=== PATIENT | female | born 1980 | race Caucasian/White ===

== ENCOUNTER 2023-08-13 23:39 | Emergency (ER) | payer BC ==
[2023-08-14] MEDS ORDERED: SODIUM CHLORIDE 0.9% 1,000 ML IV STA (00:01)
[2023-08-14] MEDS ORDERED: KETOROLAC 15 MG/ML 1 ML VIAL IVP STA (00:01)
[2023-08-14] MEDS ORDERED: ONDANSETRON 4 MG/2 ML VIAL IVP STA (00:01)
[2023-08-14 00:06] VITALS: TEMP 98.1
--- NOTE | 2023-08-14 00:12 | ED ---
Abdominal Pain HPI - General Chief Complaint: Abdominal Pain Stated Complaint: abd pain Time Seen by Provider: 08/13/23 23:51 Source: patient, RN notes reviewed Mode of arrival: wheelchair Limitations: no limitations - History of Present Illness Initial Comments: This is a 43-year-old female who presents to the emergency department for abdominal pain, nausea, vomiting, and headaches. Patient states that she's been dealing with severe exertional headaches over the last few weeks. She is working with her primary care provider to determine the cause of this. She's had an EKG and computed tomography scan of the brain revealing no acute findings. An echocardiogram was ordered, however this has not been done yet. States that today at work, she started to develop epigastric pain with nausea and vomiting. She also felt like she may have had some chest pain with this. She has had problems with similar epigastric pain before, but has never had this evaluated. The epigastric pain is still present, however it has started to improve. She does continue to have a headache as well. MD Complaint: abdominal pain - Related Data Allergies Allergy/AdvReac Type Severity Reaction Status Date / Time No Known Allergies Allergy Verified 08/13/23 23:48 Review of Systems ROS Statement: Those systems with pertinent positive or pertinent negative responses have been documented in the HPI. ROS Other: All systems not noted in ROS Statement are negative. Past Medical History Past Medical History: No Reported History History of Any Multi-Drug Resistant Organisms: None Reported Additional Past Surgical History / Comment(s): D&C Past Psychological History: No Psychological Hx Reported Smoking Status: Never smoker Past Alcohol Use History: Occasional Past Drug Use History: None Reported General Exam Limitations: no limitations General appearance: alert, in no apparent distress Head exam: Present: atraumatic, normocephalic, normal inspection Eye exam: Present: normal appearance, PERRL, EOMI. Absent: scleral icterus, conjunctival injection, periorbital swelling Respiratory exam: Present: normal lung sounds bilaterally. Absent: respiratory distress, wheezes, rales, rhonchi, stridor Cardiovascular Exam: Present: regular rate, normal rhythm, normal heart sounds. Absent: systolic murmur, diastolic murmur, rubs, gallop, clicks GI/Abdominal exam: Present: soft, tenderness (epigastric), normal bowel sounds. Absent: distended Neurological exam: Present: alert, oriented X3, CN II-XII intact Psychiatric exam: Present: normal affect, normal mood Skin exam: Present: warm, dry, intact, normal color. Absent: rash Course Vital Signs 08/13/23 08/14/23 08/14/23 23:45 01:11 02:11 Temperature 98.1 F Pulse Rate 96 80 79 Respiratory 18 16 16 Rate Blood Pressure 141/91 132/79 143/81 O2 Sat by Pulse 98 97 94 L Oximetry Medical Decision Making - Medical Decision Making This is a 43-year-old female who presents to the emergency department for abdominal pain and headaches. Was pt. sent in by a medical professional or institution? @ -No Did you speak to anyone other than the patient for history? @ -No Did you review nursing and triage notes? @ -Yes, and I agree, it is accurate with regards to the patient's symptoms. Were old charts reviewed? @ -No Differential Diagnosis? @ -Differential Abdominal Pain Women: Appendicitis, Cholecystitis, diverticulosis, ischemic bowel, pancreatitis, hepatitis, UTI, gastroenteritis, AAA, incarcerated hernia, bowel obstruction, constipation, inflammatory bowel, hepatitis, peptic ulcer disease, splenic infarction, perforated viscus, vulvitis, ovarian torsion, PID, kidney stone, placenta abruption, this is not meant to be an all-inclusive list EKG interpreted by me (3pts min.)? @ -EKG interpreted by me demonstrating the following: Sinus rhythm. Ventri cular rate 85 bpm, MO interval 161 ms, QRS duration 104 ms, QTC 412 ms. X-rays interpreted by me (1pt min.)? @ -Not obtained CT interpreted by me (1pt min.)? @ -Not obtained U/S interpreted by me (1pt. min.)? @ -Gallbladder US obtained. My interpretation identifies cholelithiasis. What testing was considered but not performed? (CT, X-rays, U/S, labs)? Why? @ -None What meds were considered but not given? Why? @ -None Did you discuss the management of the patient with other professionals? @ -No Did you reconcile home meds? @ -No Was smoking cessation discussed for >3mins.? @ -No Was critical care preformed (if so, how long)? @ -No Were there social determinants of health that impacted care today? How? (Homelessness, low income, unemployed, alcoholism, drug addiction, transportation, low edu. Level, literacy, decrease access to med. care, group home, rehab)? @ -No Was there de-escalation of care discussed even if they declined? (Discuss DNR or withdrawal of care, Hospice)? @ -No What co-morbidities impacted this encounter? (DM, HTN, Smoking, COPD, CAD, Can cer, CVA, Hep., AIDS, mental health diagnosis, sleep apnea, morbid obesity)? @ -None Was patient admitted / discharged? @ -Discharged. Lab work obtained and found to be unremarkable. Given the epigastric tenderness, a gallbladder ultrasound was obtained. Because she already had a computed tomography scan of the brain with regards to the ongoing headaches, no additional imaging in this regard was performed, as that is essentially the extent of what we would do in the emergency department. She was given IV fluids and Toradol for her symptoms. Gallbladder ultrasound reveals cholelithiasis. They did note a positive sonographic Louis sign, and advised that this is equivocal for acute cholecystitis. However patient does not have any lab work irregularities to suggest an acute cholecystitis. There is also no evidence of gallbladder wall thickening or CBD dilation. Her pain resolved with Toradol in the emergency department. Findings reviewed with the patient and she is comfortable with discharge home. She does also have follow-up appointment with her PCP on 08/16. Advised ibuprofen and Tylenol as needed for pain relief. She is also instructed to follow a low-fat bland diet for the meantime to reduce the risk of future flareups of epigastric pain. Information for general surgery follow-up provided. She is advised to contact them for a follow-up appointment. She was given strict return parameters. She will also continue to follow up with her primary care provider regarding the headaches. Undiagnosed new problem with uncertain prognosis? @ -None Drug Therapy requiring intensive monitoring for toxicity (Heparin, Nitro, Insulin, Cardizem)? @ -None Were any procedures done? @ -None Diagnosis/symptom? @ -Epigastric pain, cholelithiasis, biliary colic, headache Acute, or Chronic, or Acute on Chronic? @ -Acute Uncomplicated (without systemic symptoms) or Complicated (systemic symptoms)? @ -Uncomplicated Side effects of treatment? @ -None Exacerbation, Progression, or Severe Exacerbation] @ -Not applicable Poses a threat to life or bodily function? @ -The pain is impacting her ability to function. Return precautions reviewed in depth, the patient is instructed to return to the emergency department with any new, worsening, or concerning symptoms. Patient verbalized understanding. This case was discussed in detail with the attending ED physician, Dr. Zamorano. Presentation, findings, and treatment plan discussed in detail as well. - Lab Data Result diagrams: 08/14/23 00:56 08/14/23 00:56 Lab Results 08/14/23 08/14/23 08/14/23 Range/Units 00:56 00:56 00:56 WBC 10.5 (3.8-10.6) k/uL RBC 4.83 (3.80-5.40) m/uL Hgb 14.3 (11.4-16.0) gm/dL Hct 43.7 (34.0-46.0) % MCV 90.3 (80.0-100.0) fL MCH 29.5 (25.0-35.0) pg MCHC 32.7 (31.0-37.0) g/dL RDW 12.3 (11.5-15.5) % Plt Count 274 (150-450) k/uL MPV 8.4 Neutrophils % 70 % Lymphocytes % 23 % Monocytes % 4 % Eosinophils % 2 % Basophils % 0 % Neutrophils # 7.3 (1.3-7.7) k/uL Lymphocytes # 2.4 (1.0-4.8) k/uL Monocytes # 0.4 (0-1.0) k/uL Eosinophils # 0.2 (0-0.7) k/uL Basophils # 0.0 (0-0.2) k/uL Sodium 140 (137-145) mmol/L Potassium 3.8 (3.5-5.1) mmol/L Chloride 106 (98-107) mmol/L Carbon Dioxide 21 L (22-30) mmol/L Anion Gap 13 mmol/L BUN 23 H (7-17) mg/dL Creatinine 0.89 (0.52-1.04) mg/dL Est GFR (CKD-EPI)AfAm >90 (>60 ml/min/1.73 sqM) Est GFR (CKD-EPI)NonAf 79 (>60 ml/min/1.73 sqM) Glucose 95 (74-99) mg/dL Plasma Lactic Acid Neil 1.5 (0.7-2.0) mmol/L Calcium 9.3 (8.4-10.2) mg/dL Total Bilirubin 0.2 (0.2-1.3) mg/dL AST 34 (14-36) U/L ALT 22 (4-34) U/L Alkaline Phosphatase 76 (38-126) U/L Troponin I (0.000-0.034) ng/mL Total Protein 7.2 (6.3-8.2) g/dL Albumin 4.1 (3.5-5.0) g/dL Amylase 57 (30-110) U/L Lipase 113 (23-300) U/L Urine Color Urine Appearance (Clear) Urine pH (5.0-8.0) Ur Specific Bee (1.001-1.035) Urine Protein (Negative) Urine Glucose (UA) (Negative) Urine Ketones (Negative) Urine Blood (Negative) Urine Nitrite (Negative) Urine Bilirubin (Negative) Urine Urobilinogen (<2.0) mg/dL Ur Leukocyte Esterase (Negative) Urine RBC (0-5) /hpf Urine WBC (0-5) /hpf Ur Squamous Epith Cells (0-4) /hpf Urine Bacteria (None) /hpf Urine Mucus (None) /hpf Urine HCG, Qual (Not Detectd) 08/14/23 08/14/23 08/14/23 Range/Units 00:56 00:56 00:57 WBC (3.8-10.6) k/uL RBC (3.80-5.40) m/uL Hgb (11.4-16.0) gm/dL Hct (34.0-46.0) % MCV (80.0-100.0) fL MCH (25.0-35.0) pg MCHC (31.0-37.0) g/dL RDW (11.5-15.5) % Plt Count (150-450) k/uL MPV Neutrophils % % Lymphocytes % % Monocytes % % Eosinophils % % Basophils % % Neutrophils # (1.3-7.7) k/uL Lymphocytes # (1.0-4.8) k/uL Monocytes # (0-1.0) k/uL Eosinophils # (0-0.7) k/uL Basophils # (0-0.2) k/uL Sodium (137-145) mmol/L Potassium (3.5-5.1) mmol/L Chloride (98-107) mmol/L Carbon Dioxide (22-30) mmol/L Anion Gap mmol/L BUN (7-17) mg/dL Creatinine (0.52-1.04) mg/dL Est GFR (CKD-EPI)AfAm (>60 ml/min/1.73 sqM) Est GFR (CKD-EPI)NonAf (>60 ml/min/1.73 sqM) Glucose (74-99) mg/dL Plasma Lactic Acid Neil (0.7-2.0) mmol/L Calcium (8.4-10.2) mg/dL Total Bilirubin (0.2-1.3) mg/dL AST (14-36) U/L ALT (4-34) U/L Alkaline Phosphatase (38-126) U/L Troponin I <0.012 (0.000-0.034) ng/mL Total Protein (6.3-8.2) g/dL Albumin (3.5-5.0) g/dL Amylase (30-110) U/L Lipase (23-300) U/L Urine Color Light Yellow Urine Appearance Clear (Clear) Urine pH 7.0 (5.0-8.0) Ur Specific Bee 1.015 (1.001-1.035) Urine Protein Negative (Negative) Urine Glucose (UA) Negative (Negative) Urine Ketones Negative (Negative) Urine Blood Negative (Negative) Urine Nitrite Negative (Negative) Urine Bilirubin Negative (Negative) Urine Urobilinogen <2.0 (<2.0) mg/dL Ur Leukocyte Esterase Negative (Negative) Urine RBC 1 (0-5) /hpf Urine WBC <1 (0-5) /hpf Ur Squamous Epith Cells <1 (0-4) /hpf Urine Bacteria Rare H (None) /hpf Urine Mucus Rare H (None) /hpf Urine HCG, Qual Not Detected (Not Detectd) - Radiology Data Radiology results: report reviewed, image reviewed Disposition Clinical Impression: Epigastric pain, Cholelithiases, Biliary colic, Headache Disposition: HOME SELF-CARE Instructions (If sedation given, give patient instructions): Biliary Colic (ED), Gallstones (ED), Epigastric Pain (ED) Additional Instructions: Return to the emergency department with any new, worsening, or concerning symptoms. Alternate with ibuprofen and Tylenol as needed for pain relief. Try to follow a low-fat bland diet for the meantime to reduce the risk of abdominal pain flareups. I listed 2 general surgery offices below. Contact them Wednesday morning to see if they can get you in sooner for a follow-up appointment to discuss removal of the gallbladder. Follow up with your primary care provider in 1-2 days. Is patient prescribed a controlled substance at d/c from ED?: No Referrals: Giovani Steel MD [Primary Care Provider] - 1-2 days Bimal Stout MD [STAFF PHYSICIAN] - 1-2 days Sharonda Pérez DO [REFERRING] - 1-2 days
[2023-08-14 01:40] LABS: Basophils % (A) 0 %; Eosinophils # (A) 0.2 k/uL (0-0.7); Eosinophils % (A) 2 %; HCT 43.7 % (34.0-46.0); HGB 14.3 gm/dL (11.4-16.0); Lymphocytes # (A) 2.4 k/uL (1.0-4.8); Lymphocytes % (A) 23 %; MCH 29.5 pg (25.0-35.0); MCHC 32.7 g/dL (31.0-37.0); MCV 90.3 fL (80.0-100.0); Mean Platelet Volume 8.4; Monocytes # (A) 0.4 k/uL (0-1.0); Monocytes % (A) 4 %; Neutrophils # (A) 7.3 k/uL (1.3-7.7); Neutrophils % (A) 70 %; Platelet Count 274 k/uL (150-450); RBC 4.83 m/uL (3.80-5.40); RDW 12.3 % (11.5-15.5); WBC 10.5 k/uL (3.8-10.6)
[2023-08-14 02:24] LABS: Appearance,Urine Clear (Clear); Bilirubin,Urine Negative (Negative); Color,Urine Light Yellow; Glucose,Urine (UA) Negative (Negative); Ketones,Urine Negative (Negative); Protein,Urine Negative (Negative); Specific Gravity,Urine 1.015 (1.001-1.035)
[2023-08-14 02:25] LABS: Blood,Urine Negative (Negative); Leukocyte Esterase,Urine Negative (Negative); Nitrite,Urine Negative (Negative); Urobilinogen,Urine <2.0 mg/dL (<2.0)
[2023-08-14 02:27] LABS: Bacteria,Urine Rare /hpf; Mucus,Urine Rare /hpf; RBC,Urine 1 /hpf (0-5); Squamous Epithelial Cell,Urine <1 /hpf (0-4); WBC,Urine <1 /hpf (0-5)
[2023-08-14 03:39] LABS: ALT 22 U/L (4-34); AST 34 U/L (14-36); African American GFR (CKD) >90 (>60 ml/min/1.73 sqM); Albumin 4.1 g/dL (3.5-5.0); Alkaline Phosphatase 76 U/L (38-126); Amylase 57 U/L (30-110); Anion Gap 13 mmol/L; Blood Urea Nitrogen 23 mg/dL (7-17); Calcium 9.3 mg/dL (8.4-10.2); Carbon Dioxide 21 mmol/L (22-30); Chloride 106 mmol/L (98-107); Glucose 95 mg/dL (74-99); Lipase 113 U/L (23-300); Non-African American GFR(CKD) 79 (>60 ml/min/1.73 sqM); Potassium 3.8 mmol/L (3.5-5.1); Sodium 140 mmol/L (137-145); Total Bilirubin 0.2 mg/dL (0.2-1.3); Total Protein 7.2 g/dL (6.3-8.2)
[2023-08-14] MEDS ORDERED: IBUPROFEN 600 MG STARTER PACK 4 TAB BTL PO STA (04:30)
[2023-08-14] MEDS ORDERED: ONDANSETRON 4 MG ODT STARTER PACK 2 TAB BTL PO STA (04:30)
[2023-08-14] MEDS ORDERED: ACET/COD 300 MG/30 MG STARTER PACK 6 TAB BTL PO STA (04:30)
--- NOTE | 2023-08-14 04:34 | US ---
EXAM: US Abdomen Limited, Gallbladder CLINICAL HISTORY: ITS.REASON US Reason: Epigastric pain TECHNIQUE: Real-time ultrasound of the right upper quadrant with image documentation. COMPARISON: No relevant prior studies available. FINDINGS: Gallbladder: Cholelithiasis sonographic Louis sign is positive.. Large gallstone measures 1.6 cm. Gallbladder wall measures 0.2 cm. Common bile duct: Common bile duct is within normal limits measuring 0. 6 cm. No stones. No dilation. Pancreas: Pancreas is suboptimally evaluated secondary to overlying bowel gas. Right kidney: Echogenic kidney consistent with fatty infiltration of the same. Right kidney measures 10.8 cm in length. IMPRESSION: 1. Cholelithiasis with positive sonographic Louis sign. No gallbladder wall thickening. Findings are equivocal but may represent acute cholecystitis in the appropriate clinical setting 2. Fatty infiltration of liver
[2023-08-14 05:20] VITALS: BP 156/81; PULSE 89; RESP 18
[2023-08-14 05:58] LABS: HCG,Qualitative Serum Not Detected
== END 2023-08-14 05:14 | disposition home or self-care (01) ==
LOC: EC 23:39
DX: K80.70 Calculus of gallbladder and bile duct without cholecystitis without obstruction (principal); K76.0 Fatty (change of) liver, not elsewhere classified; N23 Unspecified renal colic; R51.9 Headache, unspecified
CPT/HCPCS: 36415; 93005; 80053; 82150; 83605; 83690; 84484; 85025; 81003; 81025; 84703; 76705; 99284; 96374; 96361; J1885; S0119

== ENCOUNTER → 2023-08-24 | Outpatient (CLI) | payer BC ==
--- NOTE | 2023-08-25 07:34 | CA ---
Transthoracic Echo Report Name: Anne Pérez Age: 43 Gender: F : 1980 Exam Date: 08/24/2023 13:37 Exam Location: [place] [facility] Ht (in): 65 Wt (lb): 208 Ordering Physician: Giovani Steel MD Attending/Referring Phys: Damián MOLINA Emergency Management Director Maryanne Alvarado RDCS Procedure CPT: Indications: R55 Syncope Cardiac Hx: Technical Quality: Fair Contrast 1: Total Dose (mL): Contrast 2: Total Dose (mL): MEASUREMENTS (Male / Female) Normal Values 2D ECHO LV Diastolic Diameter PLAX 4.2 cm 4.2 - 5.9 / 3.9 - 5.3 cm LV Systolic Diameter PLAX 2.2 cm IVS Diastolic Thickness 1.2 cm 0.6 - 1.0 / 0.6 - 0.9 cm LVPW Diastolic Thickness 1.3 cm 0.6 - 1.0 / 0.6 - 0.9 cm LV Relative Wall Thickness 0.6 RV Internal Dim ED PLAX 3.2 cm LA Volume 49.9 cm??? 18 - 58 / 22 - 52 cm??? LA Volume Index 23.6 cm???/m??? 16 - 28 cm???/m??? M-MODE Aortic Root Diameter MM 3.0 cm LA Systolic Diameter MM 3.3 cm LA Ao Ratio MM 1.1 AV Cusp Separation MM 1.9 cm DOPPLER AV Peak Velocity 121.2 cm/s AV Peak Gradient 5.9 mmHg AV Mean Velocity 89.8 cm/s AV Mean Gradient 3.5 mmHg AV Velocity Time Integral 23.2 cm LVOT Peak Velocity 111.3 cm/s LVOT Peak Gradient 5.0 mmHg LVOT Velocity Time Integral 24.2 cm MV Area PHT 4.2 cm??? Mitral E Point Velocity 61.4 cm/s Mitral A Point Velocity 116.0 cm/s Mitral E to A Ratio 0.5 MV Deceleration Time 180.2 ms MV E' Velocity 5.8 cm/s Mitral E to MV E' Ratio 10.6 TR Peak Velocity 191.0 cm/s TR Peak Gradient 14.6 mmHg Right Ventricular Systolic Press 19.6 mmHg FINDINGS Left Ventricle Mildly increased left ventricular wall thickness. Left ventricular cavity size normal. Normal left ventricular systolic function with no obvious regional wall motion abnormalities. Left ventricular ejection fraction is estimated at 55- 60%. Right Ventricle Normal right ventricular size and function. Right ventricular systolic pressure within normal limits. Right Atrium Normal right atrial size. Left Atrium Normal left atrial size. Mitral Valve Structurally normal mitral valve. No mitral stenosis, or prolapse. Trace mitral regurgitation Aortic Valve No aortic valve stenosis or regurgitation. Trileaflet aortic valve. Tricuspid Valve Structurally normal tricuspid valve. Trace to mild tricuspid regurgitation. Pulmonic Valve Structurally normal pulmonic valve. Pericardium No pericardial effusion. Aorta Normal size aortic root and proximal ascending aorta. CONCLUSIONS 1. Normal left ventricle size and systolic function 2. Trace mitral with trace to mild tricuspid regurgitation and no evidence of pulmonary hypertension Previewed by: Dr. Basil Bazan MD (Electronically Signed) Final Date: 25 August 2023 07:32
== END | disposition home or self-care (01) ==
LOC: RADECHMAIN 13:21
PROVIDERS: ATTEND Family Medicine
DX: I08.1 Rheumatic disorders of both mitral and tricuspid valves (principal); R55 Syncope and collapse
CPT/HCPCS: 93306

== ENCOUNTER → 2023-09-02 | Outpatient (CLI) | payer BC ==
--- NOTE | 2023-09-02 13:17 | MR ---
EXAMINATION TYPE: MR angio head wo/neck wo/w con DATE OF EXAM: 09/02/2023 12:40 PM CLINICAL INDICATION:Female, 43 years old with history of G44.53; PHH, Headaches. COMPARISON: None Technical: MRA brain: 2D and 3-D [id number] Axial with MIP and 3-D reconstruction. Performed on a separate w orkstation. MRA neck: Multiplanar, multi-sequence imaging as well as [id number] and phase was performed extra cranial vasculature of the neck. 3-D reformatted images and maximum intensity projection reformatted images were submitted for evaluation, these are performed on a separate workstation. IV Contrast: 9 cc Gadavist Findings: Vertebral arteries: The vertebral arteries are patent. Vertebral arteries are: Codominant. Basilar artery: The basilar artery is intact. The basilar artery bifurcation is normal. Internal Carotid arteries: The cervical, petrous, cavernous and supraclinoid segments are normal. DANA: Patent with no evidence of aneurysm. ACOM: Present without evidence of aneurysm. MCA: Patent with no evidence of aneurysm. GUNSTOCK REPAIRER: Patent with no evidence of aneurysm. origin of the right posterior cerebellar artery. PCOM: Hypoplastic left, origin right. RIGHT CAROTID SYSTEM: The common carotid artery is patent. The carotid bifurcations demonstrates no e vidence for hemodynamically significant stenosis. The internal carotid artery is patent. LEFT CAROTID SYSTEM: The common carotid artery is patent. The carotid bifurcations demonstrates no e vidence for hemodynamically significant stenosis. The internal carotid artery is patent. The origins of the great vessels and vertebral arteries appear unremarkable. The left vertebral dee ry is dominant. The right vertebral artery ascends within common carotid artery and enters the transv erse foramen more superiorly compared to the left. The vertebral arteries are patent. IMPRESSION: 1. No evidence of intracranial aneurysm or significant stenosis. 2. No evidence of significant stenosis at the carotid bifurcations. The carotid and vertebral arteri es are patent. 3. No evidence aneurysm.
== END | disposition home or self-care (01) ==
LOC: RADMRIMAIN 11:26
PROVIDERS: ATTEND Family Medicine
DX: G44.53 Primary thunderclap headache (principal)
CPT/HCPCS: 70544; 70549; A9585

== ENCOUNTER 2023-09-22 14:16 | Emergency (ER) | payer BC ==
[2023-09-22] MEDS ORDERED: MECLIZINE 12.5 MG TAB PO STA (14:28)
--- NOTE | 2023-09-22 14:38 | ED ---
Dizziness HPI - General Source: patient, RN notes reviewed Mode of arrival: ambulatory Limitations: no limitations <Armand Souza - Last Filed: 09/22/23 14:32> <Pal Carmen - Last Filed: 09/22/23 19:32> - General Chief Complaint: Dizziness Stated Complaint: Hypertension Time Seen by Provider: 09/22/23 14:32 - History of Present Illness Initial Comments: 43 year old female presents emergency dept from urgent care for evaluation of hypertension dizziness. Patient started having dizziness earlier today. Pat ient states it is worse with movement. Patient was noted to have an elevated blood pressure urgent care was given clonidine. Patient's had some mild palpitations. Denies any focal weakness denies fevers or chills no cough or cold like symptoms. (Armand Souza) Dictation was produced using [employer] dictation software. please excuse any grammatical, word or spelling errors. Chief Complaint: 43-year-old female presents emergency for for hypertension History of Present Illness: Patient is a 43-year-old female she was dizzy today while at school. She went to her primary care physician's office where they measured her blood pressure was found to be high with a systolic of 150. She has no history of hypertension states her blood pressure is normally 120 systolic. She was given Catapres and told to emergently go to the emergency department. Patient has no complaints of headache, chest or neck pain or arm pain. No shortness of breath or strokelike symptoms. Patient states that her dizziness resolved. The ROS documented in this emergency department record has been reviewed and confirmed by me. Those systems with pertinent positive or negative responses have been documented in the HPI. All other systems are other negative and/or noncontributory. (Pal Carmen) - Related Data Allergies Allergy/AdvReac Type Severity Reaction Status Date / Time No Known Allergies Allergy Verified 08/13/23 23:48 Review of Systems ROS Other: All systems not noted in ROS Statement are negative. <Armand Souza - Last Filed: 09/22/23 14:32> ROS Other: All systems not noted in ROS Statement are negative. <Pal Carmen - Last Filed: 09/22/23 19:32> ROS Statement: Those systems with pertinent positive or pertinent negative responses have been documented in the HPI. Past Medical History Past Medical History: No Reported History History of Any Multi-Drug Resistant Organisms: None Reported Additional Past Surgical History / Comment(s): D&C Past Psychological History: No Psychological Hx Reported Smoking Status: Never smoker Past Alcohol Use History: Occasional Past Drug Use History: None Reported <Armand Souza - Last Filed: 09/22/23 14:32> General Exam Limitations: no limitations General appearance: alert, in no apparent distress Head exam: Present: atraumatic, normocephalic, normal inspection <Armand Souza - Last Filed: 09/22/23 14:32> <Pal Carmen - Last Filed: 09/22/23 19:32> - General Exam Comments Initial Comments: Visual Physical Exam Vital signs reviewed General: Well-appearing, nontoxic, no acute distress. Head: Normocephalic, atraumatic Eyes: PERRLA, EOMI ENT: Airway patent Chest: Nonlabored breathing Skin: No visual rash, normal skin tone Neuro: Alert and oriented 3 Musculoskeletal: No gross abnormalities (Armand Souza) PHYSICAL EXAM: General Impression: Alert and oriented x3, not in acute distress HEENT: Normocephalic atraumatic, extra-ocular movements intact, pupils equal and reactive to light bilaterally, mucous membranes moist. Cardiovascular: Heart regular rate and rhythm Chest: Able to complete full sentences, no retractions, no tachypnea Abdomen: abdomen soft, non-tender, non-distended, no organomegaly Musculoskeletal: Pulses present and equal in all extremities, no peripheral kinza ma Motor: no focal deficits noted Neurological: CN II-XII grossly intact, no focal motor or sensory deficits noted Skin: Intact with no visualized rashes Psych: Normal affect and mood (Pal Carmen) Course Vital Signs 09/22/23 14:23 Temperature 98.5 F Pulse Rate 77 Respiratory 16 Rate Blood Pressure 132/91 O2 Sat by Pulse 98 Oximetry Medical Decision Making <Armand Souza - Last Filed: 09/22/23 14:32> - Lab Data Result diagrams: 09/22/23 14:50 09/22/23 14:50 <Pal Carmen - Last Filed: 09/22/23 19:32> - Medical Decision Making I completed the quick note portion of this chart signed Armand Souza PA-C (Armand Souza) Was pt. sent in by a medical professional or institution (SACHIN Segura, BRICK AND TILE MAKING MACHINE OPERATOR, urgent care, hospital, or alf...) When possible be specific @ -No Did you speak to anyone other than the patient for history (EMS, parent, family, police, friend...)? What history was obtained from this source @ -No Did you review nursing and triage notes (agree or disagree)? Why? @ -I reviewed and agree with nursing and triage notes Were old charts reviewed (outside hosp., previous admission, EMS record, old EKG, old radiological studies, urgent care reports/EKG's, alf records)? Report findings @ -No old charts were reviewed Differential Diagnosis (chest pain, altered mental status, abdominal pain women, abdominal pain men, vaginal bleeding, musculoskeletal, weakness, fever, dyspnea, syncope, headache, dizziness, GI bleed, back pain, seizure, CVA, palpatations, mental health)? @ -not applicable EKG interpreted by me (3pts min.). @ -None done X-rays interpreted by me (1pt min.). @ -None done CT interpreted by me (1pt min.). @ -None done U/S interpreted by me (1pt. min.). @ -None done What testing was considered but not performed or refused? (CT, X-rays, U/S, labs)? Why? @ -None What meds were considered but not given or refused? Why? @ -None Did you discuss the management of the patient with other professionals (professionals i.e. SACHIN Segura, BR[employer] AND TILE MAKING MACHINE OPERATOR, lab, RT, psych nurse, social work instructor, fire prevention specialist, teacher, retail loss prevention officer, case management coordinator)? Give summary @ -No Was smoking cessation discussed for >3mins.? @ -No Was critical care preformed (if so, how long)? @ -No Were there social determinants of health that impacted care today? How? (Homelessness, low income, unemployed, alcoholism, drug addiction, transportation, low edu. Level, literacy, decrease access to med. care, longterm, rehab)? @ -No Was there de-escalation of care discussed even if they declined (Discuss DNR or withdrawal of care, Hospice)? DNR status @ -No What co-morbidities impacted this encounter? (DM, HTN, Smoking, COPD, CAD, Cancer, CVA, ARF, Chemo, Hep., AIDS, mental health diagnosis, sleep apnea, morbid obesity)? @ -None Was patient admitted / discharged? Hospital course, mention meds given and route, prescriptions, significant lab abnormalities, going to OR and other pertinent info. @ -43 Year-old female presents emergency department for asymptomatic hypertension. Vital signs upon arrival are within acceptable limits. Patient is asymptomatic at the bedside. Labs are drawn found to be unremarkable. Reassurance provided. She is told to follow-up with her primary care doctor for outpatient workup of hypertension. Undiagnosed new problem with uncertain prognosis? @ -No Drug Therapy requiring intensive monitoring for toxicity (Heparin, Nitro, Insulin, Cardizem)? @ -No Were any procedures done? @ -No Diagnosis/symptom? Acute, or Chronic, or Acute on Chronic? Uncomplicated (without systemic symptoms) or Complicated (systemic symptoms)? @ -Hypertension Side effects of treatment? @ -No Exacerbation, Progression, or Severe Exacerbation? @ -No Poses a threat to life or bodily function? How? (Chest pain, [place], HI, pneumonia, PE, COPD, DKA, ARF, appy, cholecystitis, CVA, Diverticulitis, Homicidal, Suicidal, threat to staff... and all critical care pts) @ -No (Pal Carmen) - Lab Data Lab Results 09/22/23 09/22/23 09/22/23 Range/Units 14:50 14:50 14:50 WBC 7.8 (3.8-10.6) k/uL RBC 4.77 (3.80-5.40) m/uL Hgb 14.5 (11.4-16.0) gm/dL Hct 42.9 (34.0-46.0) % MCV 89.8 (80.0-100.0) fL MCH 30.3 (25.0-35.0) pg MCHC 33.8 (31.0-37.0) g/dL RDW 12.3 (11.5-15.5) % Plt Count 273 (150-450) k/uL MPV 7.9 Neutrophils % 67 % Lymphocytes % 26 % Monocytes % 4 % Eosinophils % 2 % Basophils % 0 % Neutrophils # 5.3 (1.3-7.7) k/uL Lymphocytes # 2.0 (1.0-4.8) k/uL Monocytes # 0.3 (0-1.0) k/uL Eosinophils # 0.1 (0-0.7) k/uL Basophils # 0.0 (0-0.2) k/uL Sodium 138 (137-145) mmol/L Potassium 4.0 (3.5-5.1) mmol/L Chloride 103 (98-107) mmol/L Carbon Dioxide 25 (22-30) mmol/L Anion Gap 10 mmol/L BUN 20 H (7-17) mg/dL Creatinine 0.76 (0.52-1.04) mg/dL Est GFR (CKD-EPI)AfAm >90 (>60 ml/min/1.73 sqM) Est GFR (CKD-EPI)NonAf >90 (>60 ml/min/1.73 sqM) Glucose 105 H (74-99) mg/dL Calcium 9.3 (8.4-10.2) mg/dL Magnesium 2.2 (1.6-2.3) mg/dL Total Bilirubin 0.4 (0.2-1.3) mg/dL AST 23 (14-36) U/L ALT 18 (4-34) U/L Alkaline Phosphatase 73 (38-126) U/L Troponin I <0.012 (0.000-0.034) ng/mL Total Protein 7.3 (6.3-8.2) g/dL Albumin 4.2 (3.5-5.0) g/dL Disposition <Armand Souza - Last Filed: 09/22/23 14:32> Is patient prescribed a controlled substance at d/c from ED?: No Time of Disposition: 19:25 <Pal Carmen - Last Filed: 09/22/23 19:32> Clinical Impression: Hypertension Disposition: HOME SELF-CARE Condition: Good Instructions (If sedation given, give patient instructions): Hypertension (ED) Referrals: Giovani Steel MD [Primary Care Provider] - 1-2 days
[2023-09-22 14:44] VITALS: TEMP 98.5
[2023-09-22 15:42] LABS: Basophils % (A) 0 %; Eosinophils # (A) 0.1 k/uL (0-0.7); Eosinophils % (A) 2 %; HCT 42.9 % (34.0-46.0); HGB 14.5 gm/dL (11.4-16.0); Lymphocytes % (A) 26 %; MCH 30.3 pg (25.0-35.0); MCHC 33.8 g/dL (31.0-37.0); MCV 89.8 fL (80.0-100.0); Mean Platelet Volume 7.9; Monocytes # (A) 0.3 k/uL (0-1.0); Monocytes % (A) 4 %; Neutrophils # (A) 5.3 k/uL (1.3-7.7); Neutrophils % (A) 67 %; Platelet Count 273 k/uL (150-450); RBC 4.77 m/uL (3.80-5.40); RDW 12.3 % (11.5-15.5); WBC 7.8 k/uL (3.8-10.6)
[2023-09-22 15:51] LABS: ALT 18 U/L (4-34); AST 23 U/L (14-36); African American GFR (CKD) >90 (>60 ml/min/1.73 sqM); Albumin 4.2 g/dL (3.5-5.0); Alkaline Phosphatase 73 U/L (38-126); Anion Gap 10 mmol/L; Blood Urea Nitrogen 20 mg/dL (7-17); Calcium 9.3 mg/dL (8.4-10.2); Carbon Dioxide 25 mmol/L (22-30); Chloride 103 mmol/L (98-107); Glucose 105 mg/dL (74-99); Magnesium 2.2 mg/dL (1.6-2.3); Non-African American GFR(CKD) >90 (>60 ml/min/1.73 sqM); Sodium 138 mmol/L (137-145); Total Bilirubin 0.4 mg/dL (0.2-1.3); Total Protein 7.3 g/dL (6.3-8.2)
[2023-09-22 19:50] VITALS: BP 130/83; PULSE 69; RESP 18
== END 2023-09-22 19:36 | disposition home or self-care (01) ==
LOC: EC 14:16
DX: I10 Essential (primary) hypertension (principal)
CPT/HCPCS: 36415; 80053; 83735; 84484; 85025; 93005; 99284

== ENCOUNTER → 2023-11-04 | Outpatient (CLI) | payer BC ==
--- NOTE | 2023-11-05 12:07 | US ---
EXAMINATION TYPE: US renal artery duplex complet DATE OF EXAM: 11/04/2023 COMPARISON: NONE CLINICAL INDICATION: Female, 43 years old with history of I10 ESSENTIAL (PRIMARY) HYPERTENSION; New o nset HTN (uncontrolled but has meds once BP goes too high) since august, recurrent headaches, and w aiting for cholecystectomy MEASUREMENTS: RENAL SIZE: Right Kidney: 11.2 x 5.8 x 5.6 cm Left Kidney: 11.3 x 6.4 x 5.5 cm Right Kidney: wnl Left Kidney: wnl Abd Aorta: wnl RESISTANCE INDEX Right: 0.62 Left: 0.88 RA/AO RATIO (< 3.5 ) Right: 0.6 Left: 0.5 RENAL ARTERY VELOCITY ( < 180 cm/s) Right: 120 Left: 77 Audio Production Engineer Notes: unremarkable exam IMPRESSION: 1. No suspicious renal artery stenosis by ultrasound
== END | disposition home or self-care (01) ==
LOC: RADUSWWP 06:55
PROVIDERS: ATTEND Family Medicine
DX: I10 Essential (primary) hypertension (principal); R51.9 Headache, unspecified
CPT/HCPCS: 93975

== ENCOUNTER 2023-12-17 06:16 | Day surgery (SDC) | payer BC ==
[~2023-12-17 06:16] MED LIST: INDOCYANINE GREEN 25 MG VIAL IV STA
--- NOTE | 2023-12-17 06:16 | P.GSHP ---
History of Present Illness H&P Date: 12/17/23 CHIEF COMPLAINT: Cholecystitis HISTORY OF PRESENT ILLNESS: The patient is a 20-year-old female who presents with history of epigastric including right upper quadrant abdominal pain. She underwent diagnostic studies for her gallbladder. Separately her clinical picture was consistent with cholecystitis. Now she presents for surgical intervention. PAST MEDICAL HISTORY: Please see list PAST SURGICAL HISTORY: Please see list MEDICATIONS: Please see list ALLERGIES: Please see list SOCIAL HISTORY: Please see list FAMILY HISTORY: Please see list REVIEW OF ORGAN SYSTEMS: CONSTITUTIONAL: No reports of fevers or chills. HEENT: Denies any troubles with the vision or hearing. ENDOCRINE: No reports of hypothyroidism. No diabetes. RESPIRATORY: No recent pneumonias. CARDIOVASCULAR: Denies chest pain or palpitations GI: No blood in stools or constipation. MUSCULOSKELETAL: Has occasional joint pain including back pain. NEURO: No seizure disorders or headaches. No recent stroke. PSYCH: No depression or suicidal ideation. GENITOURINARY: No active blood in urine. No urinary hesitancy. HEMATOLOGIC: No personal or family history of DVTs or pulmonary emboli. SKIN: No skin cancer. PHYSICAL EXAM: VITAL SIGNS: Afebrile vital signs stable GENERAL: Well-developed pleasant in no acute distress. HEENT: No scleral icterus. Extraocular movements grossly intact. Moist buccal mucosa. NECK: Supple without lymphadenopathy. CHEST: Unlabored respirations. Equal bilateral excursions. CARDIOVASCULAR: Regular rate regular rhythm rhythm. Distal 2+ pulses. ABDOMEN: Soft, nondistended. Tender along the epigastrium and right upper quadrant. MUSCULOSKELETAL: No clubbing, cyanosis, or edema. NEURO: Cranial nerves II to XII within normal limits. No focal or lateralizing signs. PSYCH: Alert and oriented to person, place and time. SKIN: Well-perfused good skin turgor. ASSESSMENT: 1. Epigastric and right upper quadrant abdominal pain 2. Chronic cholecystitis 3. Symptomatic gallstones. PLAN: 1. Will need a robotic cholecystectomy possible open. Benefits and risks were described. 2. Heparin for DVT prophylaxis 5000 units. 3. Antibiotic prophylaxis. 4. CBC and CMP on day of procedure 5. Non-narcotic pre and post op pain management reviewed. 6. Indocyanine green for biliary imaging. 7. Clinically, she is elevated risk for hypertensive heart disease. 8. A low-fat diet was advised. 9. Time of recovery of at least two weeks was reviewed. Past Medical History Past Medical History: Hypertension History of Any Multi-Drug Resistant Organisms: None Reported Additional Past Surgical History / Comment(s): D&C Past Anesthesia/Blood Transfusion Reactions: No Reported Reaction Smoking Status: Never smoker - Past Family History Father Family Medical History: No Reported History Medications and Allergies Home Medications Medication Instructions Recorded Confirmed Type Amlodipine(Unk) 5 mg PO HS 12/14/23 12/14/23 History Citalopram Hydrobromide 10 mg PO HS 12/14/23 12/14/23 History [Citalopram HBr] Levocetirizine Dihydrochloride 5 mg PO HS 12/14/23 12/14/23 History [Xyzal] Allergies Allergy/AdvReac Type Severity Reaction Status Date / Time No Known Allergies Allergy Verified 12/14/23 12:52
[2023-12-17 06:59] LABS: HCT 46.3 % (34.0-46.0); HGB 15.3 gm/dL (11.4-16.0); MCH 29.8 pg (25.0-35.0); MCHC 33.1 g/dL (31.0-37.0); Mean Platelet Volume 7.7; Platelet Count 321 k/uL (150-450); RBC 5.14 m/uL (3.80-5.40)
[2023-12-17] MEDS ORDERED: MIDAZOLAM 2 MG/2 ML VIAL IV PRN (07:00)
[2023-12-17] MEDS: LACTATED RINGERS 1,000 ML IV SCH (07:06)
[2023-12-17 07:14] VITALS: RESP 16
[2023-12-17] MEDS: SCOPOLAMINE 1 MG/72 HR PATCH TRANSDERM STA (07:17)
[2023-12-17] MEDS: HEPARIN SODIUM,PORCINE 5,000 UNIT/ML 1 ML VIAL SQ PRN (07:17)
[2023-12-17] MEDS: ACETAMINOPHEN TAB 500 MG TAB PO PRN (07:17)
[2023-12-17] MEDS: ONDANSETRON 4 MG/2 ML VIAL IVP PRN (07:17)
[2023-12-17] MEDS: DEXAMETHASONE SOD PHOSPHATE 4 MG/ML 1 ML VIAL IVP ONE (07:18)
[2023-12-17] MEDS ORDERED: PHENYLEPHRINE-0.9% NACL SYG 1,000 MCG/10 ML SYRINGE ONE (07:25)
[2023-12-17] MEDS ORDERED: fentaNYL (PF) 50 MCG/ML 2 ML AMP ONE (07:25)
[2023-12-17] MEDS ORDERED: SUCCINYLCHOLINE CHLORIDE 200 MG/10 ML VIAL IV ONE (07:25)
[2023-12-17] MEDS ORDERED: LIDOCAINE 1% INJ 10MG/ML (20 ML MDV) ONE (07:25)
[2023-12-17] MEDS ORDERED: PROPOFOL 10 MG/ML 20 ML VIAL IV ONE (07:25)
[2023-12-17] MEDS ORDERED: GLYCOPYRROLATE 0.2 MG/ML 2 ML VIAL ONE (07:25)
[2023-12-17] MEDS ORDERED: ROCURONIUM 10 MG/ML (5 ML VIAL) IV ONE (07:25)
[2023-12-17] MEDS ORDERED: NEOSTIGMINE 1 MG/ML 10 ML VIAL ONE (07:25)
[2023-12-17] MEDS ORDERED: MIDAZOLAM 2 MG/2 ML VIAL ONE (07:25)
[2023-12-17] MEDS: LIDOCAINE 1%-EPI 1:100,000 50 ML VIAL SQ ONE (07:50)
--- NOTE | 2023-12-17 08:47 | P.OP ---
Date of Procedure: 12/17/23 Description of Procedure: SURGEON: JOSSY STEPHENSON MD PREOPERATIVE DIAGNOSES: 1. Symptomatic gallstone 2. Right upper quadrant abdominal pain 3. Atypical chest pain 4. Abnormal EKG 5. Hypertensive heart disease 6. Morbid obesity due to excess calories, BMI 35.9 7. Generalized anxiety disorder POSTOPERATIVE DIAGNOSES: 1. Symptomatic gallstone 2. Right upper quadrant abdominal pain 3. Atypical chest pain 4. Abnormal EKG 5. Hypertensive heart disease 6. Morbid obesity due to excess calories, BMI 35.9 7. Generalized anxiety disorder OPERATION: Robotic-assisted da Jonathan Xi laparoscopic cholecystectomy, multiport with FIREFLY ESTIMATED BLOOD LOSS: 5 mL. SPECIMENS REMOVED: Gallbladder. COMPLICATIONS: None. OPERATIVE FINDINGS: 1. Minimal fatty liver disease and hepatomegaly INDICATIONS: The patient is a 43-year-old female who presents with symptomatic gallstones. Robotic assisted laparoscopic approach was described. Benefits and risks of the procedure including but not limited to bleeding, infection, injury to the biliary tree was described. Informed consent was obtained. DESCRIPTION OF PROCEDURE: Patient was brought to the operating room, placed in supine position. After general induction, the abdomen had been prepped and draped in standard sterile fashion. The robotic da Jonathan XI system was primed. After a timeout protocol was performed, the patient had been prepped and draped in standard sterile fashion. The patient was injected with indocyanine green. A 5 mm 0 degrees laparoscopic trocar entry was performed along the left upper quadrant. The abdomen insufflated to 15 mmHg pressure which was tolerated well. Diagnostic laparoscopy demonstrated no injury to bowel viscera or mesentery. The liver surface was unremarkable. Next, two 8 mm robotic ports were placed along the right upper abdomen. The camera 8-mm port was maintained along the epigastrium. Another 8 mm port was placed along the left upper abdominal wall after exchanging the 5 mm port. Please note that the ports were placed at least 10 to 15 cm away from the target anatomy of the gallbladder. The robot was docked along the left lateral abdomen. The patient was repositioned in reverse Trendelenburg position. Using a grasper for arm 3, a grasper for arm 4, including hook cautery for arm 1, the robotic system was docked and primed as described. Instruments were interchanged by the volunteer services assistant including hook cautery, Bovie cautery and clip appliers. I had sat at the console. Next attention was brought to the infundibulum and cystic structures. The infundibulum and cystic duct were dissected free from surrounding tissues. The cystic duct was isolated. FIREFLY was used to identify the cystic artery and cystic structures. A critical view of safety was obtained. Large PLASTIC clips were used throughout the entire case. Using a clip marketing underwriter, 3 clips were placed at the junction of the infundibulum and cystic duct. The cystic duct was divided between clips. The cystic artery was cauterized. Electro-Bovie cautery was used to remove the gallbladder from the hepatic fossa. Hemostasis was checked and found to be adequate. The robot was undocked. I re-scrubbed into the case. Using a 10 mm Endo Catch bag via the left upper quadrant incision, the specimen was removed from the abdominal cavity. All pneumoperitoneum instruments were evacuated from the abdominal cavity. The incisions were reapproximated using 4-0 Monocryl in an interrupted subcuticular fashion. Fascial defects were less than 8 mm in size. Please note along the trocar sites, local anesthetic was placed as a field block prior to insertion of all instruments. Liquid glue was applied to the skin. At the end of the procedure needle, sponge, and instrument count had been verified correct by the surgical resident. The patient was transferred to postanesthesia care unit in stable condition. Intraoperative films were shared with the patient's family. Plan - Discharge Summary Discharge Rx Participant: No New Discharge Prescriptions: New Simethicone [Gas-X] 125 mg PO AC-TID PRN #20 capsule PRN Reason: Pain Acetaminophen Tab [Tylenol Tab] 1,000 mg PO Q6HR PRN #30 tablet PRN Reason: Pain Ibuprofen [Motrin] 600 mg PO Q8HR PRN #30 tab PRN Reason: Pain Continue Citalopram Hydrobromide [Citalopram HBr] 10 mg PO HS Amlodipine(Unk) 5 mg PO HS Levocetirizine Dihydrochloride [Xyzal] 5 mg PO HS Discharge Medication List Amlodipine(Unk) 5 mg PO HS 12/14/23 [History] Citalopram Hydrobromide [Citalopram HBr] 10 mg PO HS 12/14/23 [History] Levocetirizine Dihydrochloride [Xyzal] 5 mg PO HS 12/14/23 [History] Acetaminophen Tab [Tylenol Tab] 1,000 mg PO Q6HR PRN #30 tablet 12/17/23 [Rx] Ibuprofen [Motrin] 600 mg PO Q8HR PRN #30 tab 12/17/23 [Rx] Simethicone [Gas-X] 125 mg PO AC-TID PRN #20 capsule 12/17/23 [Rx] Follow up Appointment(s)/Referral(s): Jossy Stephenson MD [STAFF PHYSICIAN] - 12/21/23 8:45 am (TELEPHONE---DR JENNIE RANGEL BETWEEN 8 am to 8 pm....) Patient Instructions/Handouts: Laparoscopic Cholecystectomy (DC), Low Fat Diet (DC) Activity/Diet/Wound Care/Special Instructions: TELEPHONE---DR JENNIE RANGEL BETWEEN 8 am to 8 pm.... Recommend low-fat diet for the next 2 days. No lifting over 10 pounds in 2 weeks until December 30February shower. No bath tub soaks for two weeks until December 30 Diet as tolerated. Use Tylenol, simethicone and ibuprofen or Aleve scheduled for the next 24-48 hours for best pain relief. Use ice along incisions for today to prevent swelling. Discharge Disposition: HOME SELF-CARE
[2023-12-17 08:51] VITALS: TEMP 99.4
[2023-12-17] MEDS: HYDROmorphone 0.5 MG/0.5 ML SYRINGE IVP ONE (08:54)
[2023-12-17] MEDS: HYDROmorphone 0.5 MG/0.5 ML SYRINGE IVP PRN (09:17)
[2023-12-17] MEDS: LACTATED RINGERS 1,000 ML IV ONE (09:45)
[2023-12-17 11:01] VITALS: BP 127/79; PULSE 95
== END 2023-12-17 11:10 | disposition home or self-care (01) ==
LOC: OR 06:16
PROVIDERS: ATTEND Surgery Plastic and Reconstructive Surgery
DX: K80.20 Calculus of gallbladder without cholecystitis without obstruction (principal); I11.9 Hypertensive heart disease without heart failure; E66.01 Morbid (severe) obesity due to excess calories; F41.9 Anxiety disorder, unspecified; Z68.35 Body mass index [BMI] 35.0-35.9, adult
CPT/HCPCS: 47563; 81025; 88304; 85027; J2250; J0330; J1644; J1100; J2710; J0690; J2405; J2001; J3010; J2704; J1170; J2371

== ENCOUNTER 2025-05-01 10:19 | Day surgery (SDC) | payer BC ==
[2025-04-30 09:33] VITALS: BMI 35.4
[2025-05-01] MEDS: IV FLUID CONTINUATION 1,000 ML IV ONE (10:49)
[2025-05-01] MEDS: LACTATED RINGERS 1,000 ML IV SCH (10:49)
[2025-05-01 10:50] VITALS: TEMP 96.9
[2025-05-01] MEDS ORDERED: PROPOFOL 10 MG/ML 20 ML VIAL IV ONE (11:38)
--- NOTE | 2025-05-01 11:52 | P.PCN ---
Date of Procedure: 05/01/25 Procedure(s) Performed: BRIEF HISTORY: Patient is a 44-year-old pleasant white female scheduled for an elective colonoscopy as a part of screening for colon cancer/positive Cologuard. PROCEDURE PERFORMED: Colonoscopy with snare polypectomy. PREOPERATIVE DIAGNOSIS: Screening for colon cancer/positive Cologuard. IV sedation per Anesthesia. PROCEDURE: After informed consent was obtained, the patient, was brought into the endoscopy unit. IV sedation was administered by Anesthesia under continuous monitoring. Digital rectal examination was normal. Initially the Olympus CF-160 flexible video colonoscope was then inserted in the rectum, gradually advanced into the cecum without any difficulty. Careful examination was performed as the scope was gradually being withdrawn. Ileocecal valve and the appendiceal orifice were visualized and appeared normal. Prep was excellent. Mucosa of the cecum, ascending colon, transverse colon, descending colon, sigmoid colon, appeared normal. In the rectosigmoid colon at 20 cm from anal was there was a 7 mm sessile polyp that was removed by snare polypectomy. Scattered sigmoid diverticulosis. The rectum appeared normal. Retroflexion was performed in the rectum and no lesions were seen. The patient tolerated the procedure well. IMPRESSION: 7 mm sessile rectosigmoid polyp status post cold snare polypectomy Scheduled sigmoid diverticulosis. RECOMMENDATIONS: Findings of this examination were discussed with the patient as well as her family. She was advised to follow-up with the biopsy results. If the biopsy reveals adenoma she can have repeat colonoscopy in 5 years.
[2025-05-01 12:00] VITALS: RESP 16
[2025-05-01 12:26] VITALS: BP 117/58; PULSE 74
== END 2025-05-01 12:50 | disposition home or self-care (01) ==
LOC: ORWHC2ENDO 10:19
PROVIDERS: ATTEND Internal Medicine Gastroenterology
DX: K63.5 Polyp of colon (principal); K57.30 Diverticulosis of large intestine without perforation or abscess without bleeding; I10 Essential (primary) hypertension; F41.9 Anxiety disorder, unspecified; Z79.899 Other long term (current) drug therapy
CPT/HCPCS: 81025; 88305; 45385; J2704